=== PATIENT | male | born 1950 | race Caucasian/White ===

== ENCOUNTER 2022-05-10 09:36 | Inpatient (IN) ==
[2022-05-10] MEDS ORDERED: Ondansetron 4 MG/2 ML VIAL IVP PRN (14:01)
[2022-05-10] MEDS ORDERED: *HR* LORazepam 2 MG/ML VIAL IVP PRN ×3 (14:03)
[2022-05-10] MEDS ORDERED: Octreotide 400 MCG in 0.9 % Sodium Chloride 100 ML IVC SCH (14:30)
[2022-05-10] MEDS: 0.9 % Sodium Chloride 1,000 ML IVC SCH (14:53)
[2022-05-10] MEDS: Pantoprazole 40 MG VIAL IVP SCH (17:31)
[2022-05-11] MEDS: 0.9 % Sodium Chloride 1,000 ML IVC SCH (03:08)
[2022-05-11 03:26] LABS: Basophils % 0.7 %; Eosinophils # 0.3 K/mcL (0.0-0.6); Eosinophils % 4.9 %; Hemoglobin 9.4 g/dL (12.9-16.9); Immature Granulocytes % 1.4 % (0-4); Lymphocytes # 2.2 K/mcL (0.6-4.6); Mean Corpuscular HGB Conc 33.6 g/dL (31.6-35.5); Mean Corpuscular Hemoglobin 33.6 pg (28.0-33.3); Mean Platelet Volume 9.6 fL (9.4-12.4); Monocytes # 0.7 K/mcL (0.0-1.3); Monocytes % 12.5 %; Neutrophils # 2.4 K/mcL (1.6-8.9); Platelet Count 176 K/mcL (140-400); Red Cell Distribution Width 12.9 % (11.5-14.5); Segmented Neutrophils % 41.5 %; White Blood Count 5.7 K/mcL (4.3-11.1)
[2022-05-11 03:36] LABS: BUN/Creatinine Ratio 36 (6-26); Blood Urea Nitrogen 21 mg/dL (8-23); Calcium 8.2 mg/dL (8.6-10.3); Carbon Dioxide 25 mEq/L (23-29); Chloride 105 mEq/L (98-107); Glucose 114 mg/dL (70-105); Osmolality,Calculated 286 (280-300); Potassium 4.4 mEq/L (3.5-5.1); Sodium 136 mEq/L (136-145); eGFR For African Americans > 60 (> 60); eGFR For Non-African Americans > 60 (> 60)
[2022-05-11] MEDS: Pantoprazole 40 MG VIAL IVP SCH ×2 (07:33→17:31)
[2022-05-11] MEDS: Folic Acid 1 MG TABLET PO SCH (08:06)
[2022-05-11] MEDS: Thiamine (B-1) 100 MG TABLET PO SCH (08:07)
[2022-05-11] MEDS ORDERED: cefTRIAXone 1,000 MG in Water for inj. (sterile) 10 ML IVP SCH (09:00)
[2022-05-11] MEDS ORDERED: *HR* Propofol 200 MG/20 ML VIAL IVP ONE (09:50)
[2022-05-11] MEDS ORDERED: Lidocaine -MPF 2% 5 ML VIAL ONE (09:50)
[2022-05-11] MEDS ORDERED: Iopamidol - 370 500 ML MLS IVP ONE (10:23)
[2022-05-11] MEDS: Acetaminophen 325 MG TABLET PO PRN (10:48)
[2022-05-11] MEDS ORDERED: Nitroglycerin 0.4 MG TAB.SUBL SL PRN (12:11)
[2022-05-11] MEDS: *HR* OxyCODONE/APAP 5/325 TABLET PO PRN ×2 (14:39→22:01)
[2022-05-11] MEDS: carvediloL 6.25 MG TABLET PO SCH (17:30)
[2022-05-12 03:10] LABS: Basophils # 0.1 K/mcL (0.0-0.2); Basophils % 0.8 %; Eosinophils # 0.6 K/mcL (0.0-0.6); Eosinophils % 8.9 %; Hemoglobin 9.2 g/dL (12.9-16.9); Immature Granulocytes % 1.6 % (0-4); Lymphocytes # 1.9 K/mcL (0.6-4.6); Lymphocytes % 30.1 %; Mean Corpuscular HGB Conc 32.9 g/dL (31.6-35.5); Mean Corpuscular Hemoglobin 33.3 pg (28.0-33.3); Mean Corpuscular Volume 101.4 fL (83.0-100.0); Mean Platelet Volume 10.7 fL (9.4-12.4); Monocytes # 0.5 K/mcL (0.0-1.3); Monocytes % 8.7 %; Neutrophils # 3.1 K/mcL (1.6-8.9); Platelet Count 161 K/mcL (140-400); Red Blood Count 2.76 M/mcL (4.19-5.50); Segmented Neutrophils % 49.9 %; White Blood Count 6.2 K/mcL (4.3-11.1)
[2022-05-12 03:34] LABS: BUN/Creatinine Ratio 21 (6-26); Blood Urea Nitrogen 12 mg/dL (8-23); Calcium 8.6 mg/dL (8.6-10.3); Carbon Dioxide 24 mEq/L (23-29); Chloride 105 mEq/L (98-107); Glucose 83 mg/dL (70-105); Osmolality,Calculated 281 (280-300); Phosphorous 3.5 mg/dL (2.7-4.5); Potassium 4.4 mEq/L (3.5-5.1); Sodium 136 mEq/L (136-145); eGFR For African Americans > 60 (> 60); eGFR For Non-African Americans > 60 (> 60)
[2022-05-12] MEDS: Pantoprazole 40 MG VIAL IVP SCH ×2 (05:32→17:10)
[2022-05-12] MEDS: *HR* OxyCODONE/APAP 5/325 TABLET PO PRN ×2 (05:37→12:06)
[2022-05-12] MEDS: carvediloL 6.25 MG TABLET PO SCH ×2 (08:22→17:04)
[2022-05-12] MEDS: Folic Acid 1 MG TABLET PO SCH (08:23)
[2022-05-12] MEDS: Thiamine (B-1) 100 MG TABLET PO SCH (08:23)
[2022-05-12] MEDS: Acetaminophen 325 MG TABLET PO PRN (15:07)
[2022-05-13 02:43] LABS: Hematocrit 28.5 % (37.5-50.1); Hemoglobin 9.7 g/dL (12.9-16.9)
[2022-05-13] MEDS: Pantoprazole 40 MG VIAL IVP SCH (05:44)
[2022-05-13 05:47] VITALS: O2SAT 95
[2022-05-13] MEDS: carvediloL 6.25 MG TABLET PO SCH (08:21)
[2022-05-13] MEDS: Folic Acid 1 MG TABLET PO SCH (08:22)
[2022-05-13] MEDS: Thiamine (B-1) 100 MG TABLET PO SCH (08:22)
[2022-05-13 13:46] VITALS: BP 114/70; PULSE 76; TEMP 97.5
[2022-05-13] MEDS: *HR* OxyCODONE/APAP 5/325 TABLET PO PRN (14:27)
== END 2022-05-13 15:30 | disposition home health service (06) | DRG 378 ==
LOC: 3NENU → SUATTDRO 13:41
PROVIDERS: ADMIT Internal Medicine; ATTEND Internal Medicine